=== PATIENT | male | born 1985 | race African-American/Black ===

== ENCOUNTER 2023-11-26 20:03 | Emergency (ER) | payer OTHER, SELFPAY ==
[2023-11-26 20:11] VITALS: BP 195/123
--- NOTE | 2023-11-26 23:20 | ED.GENMED ---
History of Present Illness
General
Chief Complaint: Extremity Pain (non-traumatic)
Source: patient
Exam Limitations: none
Time Seen by Provider: 11/26/23 20:31
Nursing documentation reviewed up to this point in time: agreed with
History of Present Illness
History of Present Illness:
Patient was seen in ED in [facility] on Thursday for injury to his left gre4at toe. Great toenail was avulsed. He received sutures to medial distal great toe. To ED today because of pain. Unable to remove dressing due to pain. Brought self to ED for
eval.
Phy Exam
Musculoskeletal Exam
Musculoskeletal Exam: full ROM and neuro vasc intact
Skin Exam
Skin Exam: normal color, warm/dry, no rash and other (No redness swelling or drainge from great toe. Healing well. Suture intact. )
Course
Vital Signs
Initial and Last Documented VS:
Initial Vital Signs
Temp Pulse Resp BP Pulse Ox
97.8 F 76 18 195/123 96
11/26/23 20:11 11/26/23 20:11 11/26/23 20:11 11/26/23 20:11 11/26/23 20:11
Last Documented Vital Signs
Temp Pulse Resp BP Pulse Ox
97.8 F 76 18 195/123 96
11/26/23 20:11 11/26/23 20:11 11/26/23 20:11 11/26/23 20:11 11/26/23 20:11
ED Attending Note
-
Portions of this chart may have been created with voice recognition software.� Occasional wrong word or��sound alike� substitutions may have occurred due to the inherent limitations of voice recognition software.
Discharge Plan
Departure
Patient Disposition: Home (Routine Discharge)
Date of Disposition: 11/26/23
Time of Disposition: 21:07
Patient with high blood pressure during this ER visit?: No
Condition: Good
Covid-19: Not Applicable
Discharge Problem:
Visit for wound check
Instructions: Nail Avulsion (DC), Wound Care ED
Prescriptions:
New
hydrocodone-acetaminophen 5-325 mg tablet
1 tab PO Q4H PRN (Reason: Pain) Qty: 10 0RF
Referrals:
Chrissy Marc DO [Family Provider] - Follow up in 2-3 days
Interventions
Interventions:
*Nursing Disposition Last Done: 11/26/23 21:16
ED-Skin Assessment Last Done: 11/26/23 20:37
ED-Musculoskeletal Assessment Last Done: 11/26/23 20:37
Discharge Date and Time
Discharge Date/Time: 11/26/23 21:17
Print Language: BULGARIAN
== END 2023-11-26 21:17 | disposition home or self-care (01) ==
LOC: EMR 20:03
PROVIDERS: EMERGENCY PHYSICIAN Emergency Medicine; FAMILY PHYSICIAN Family Medicine
DX: Z48.01 Encounter for change or removal of surgical wound dressing (principal)
CPT/HCPCS: 99282